=== PATIENT | female | born 1985 | race Caucasian/White ===

== ENCOUNTER 2024-04-13 22:53 | Inpatient (IN) | payer OTHER, SELFPAY ==
[2024-04-13 16:49] VITALS: BMI 37.2
[2024-04-13 17:10] VITALS: BP 113/74
[2024-04-13 17:58] LABS: % Basophils 0.3 % (0-2); % Immature Granulocytes 0.7 % (0-0.5); % Lymphocytes 6.9 % (20.5-51.1); % Monocytes 9.3 % (1.7-9.3); % Neutrophils 82.8 % (42.2-75.2); Absolute Basophils 0.1 10^3/uL (0-0.2); Absolute Immature Granulocytes 0.2 10^3/uL (0-0.05); Absolute Lymphocytes 1.8 10^3/uL (1.2-3.4); Absolute Monocytes 2.4 10^3/uL (0.1-0.6); Hematocrit 36.7 % (37.0-47.0); Hemoglobin 12.6 g/dL (12.0-16.0); Mean Corp Hgb Conc. 34.3 g/dL (33.0-37.0); Mean Corpuscular Hgb 29.1 pg (27.0-31.0); Mean Corpuscular Volume 84.8 fL (81.0-99.0); Nucleated Red Blood Cells % 0 %; Platelet Count 379 10^3/uL (130-400); Red Blood Cell Count 4.33 10^6/uL (4.20-5.40); Red Cell Dist. Width 13.6 % (11.5-14.5); White Blood Cell Count 25.4 10^3/uL (4.8-10.8)
[2024-04-13 18:01] LABS: Urine Albumin 1+ (Neg - Trace); Urine Bilirubin Negative (Negative); Urine Character Very Cloudy (Clear); Urine Color Yellow; Urine Glucose Negative (Negative); Urine Ketone Negative (Negative); Urine Leukocyte 2+ (Negative); Urine Nitrite Positive (Negative); Urine Occult Blood 1+ (Negative); Urine Urobilinogen 1+ (Neg - 1+)
[2024-04-13 18:13] LABS: Lactic Acid 1.5 mmol/L (0.7-2.0)
[2024-04-13 18:14] LABS: Urine Bacteria Few (Negative); Urine White Cell 80-90 /HPF (0-5)
[2024-04-13 18:15] LABS: ALT (SGPT) 30 U/L (0-35); AST (SGOT) 31 U/L (14-36); Albumin 4.1 g/dl (3.5-5.0); Alkaline Phosphatase 112 U/L (38-126); Blood Urea Nitrogen 7 mg/dl (7-17); Calcium 9.7 mg/dl (8.4-10.2); Carbon Dioxide 23 mmol/L (22-30); Chloride 101 mmol/L (98-107); Glucose 105 mg/dl (70-99); Potassium 3.8 mmol/L (3.5-5.1); Sodium 136 mmol/L (135-145); Total Bilirubin 0.7 mg/dl (0.2-1.3); Total Protein 7.2 g/dl (6.3-8.2); eGFR > 60.00
[2024-04-13] MEDS: NSS 1000 IV ×2 (20:32→23:02)
--- NOTE | 2024-04-13 20:59 | ED.GENMED ---
History of Present Illness
General
Chief Complaint: Fever
Source: patient and family
Exam Limitations: none
Time Seen by Provider: 04/13/24 20:11
Nursing documentation reviewed up to this point in time: agreed with
Travel History
Have you had any contact with someone who has COVID-19?: No
Do you have any symptoms of coronavirus? Fever > 100 degrees, chills, cough, shortness of breath, sore throat, loss of taste or smell, muscle aches, or headache?: Yes
Symptoms:: Fever
History of Present Illness
History of Present Illness:
Patient presents to ED secondary to 4-day history of urinary frequency, dysuria, flank pain, fever, vomiting, and decreased appetite. Tylenol and Motrin both taken at 3 PM this afternoon secondary to temp greater than 103. Denies trauma. Denies
back pain. Denies history of kidney stones. Denies recent illness. Denies recent change in medications or diet. Denies previous history of similar symptoms.
Past History
Past History
ED Past Medical History: Hypothyroidism (Hypothyroid) and Psychiatric (Anxiety/depression/PTSD)
ED Past Surgical History: Cholecystectomy, and Other
Social History
Tobacco: Smoker
Living: with family
Review of Systems
Review of Systems
Allergies reviewed?: Yes
All Other Systems: ROS reviewed and negative except as documented in HPI and ROS
Constitutional: Reports fever and chills
EENT: Reports no symptoms
Respiratory: Reports no symptoms
Cardiac: Reports no symptoms
ABD/GI: Reports nausea and vomiting
: Reports dysuria, frequency and flank pain
Musculoskeletal: Reports no symptoms; Denies back pain
Skin: Reports no symptoms
Neurological: Reports no symptoms
Phy Exam
Physical Exam
Physical Exam:
Physical Exam
General: moderate distress, not acutely ill. febrile
Head: nc/at. eomi
Neck: supple. no meningeal signs.
Heart: tachycardic, no murmur. equal radial pulses.
Lungs: no acute respiratory distress. clear bilaterally
Abdomen: normal bowel sounds. not tender.
Back: no midline tenderness.
Neuro: alert and oriented. no focal neurological deficits
Skin: no rash
Psychiatric: well kept. interactive and cooperative
Extremities: no edema. no calf tenderness.
Course
Orders/Labs/Results
Orders:
Orders
04/13/24 Breakfast
Clear Liquid
At Your Request: Full Participation
04/13/24 17:35
Complete Blood Count/With Diff Urgent
Comprehensive Metabolic Panel Urgent
HCG, Serum Qualitative Screen Urgent
Comment: ADD ON
Lactic Acid Q4H
Comment: ON ICE, CANCEL 2ND ORDER IF FIRST LACTIC ACID LEVEL <2
Urinalysis Reflex To Culture Urgent
Date Specimen was Collected: 04/13/24
Time Specimen was Collected: 17:12
Urine Microscopic Reflex Cult Urgent
Blood Culture Q30M
VIOLETTA Source: Blood/Venous
Specimen Description:
Comment: FROM 2 SEPARATE SITES
Urine Culture Urgent
VIOLETTA Source: U
Specimen Description:
Date Specimen was Collected: 04/13/24
Time Specimen was Collected: 17:12
04/13/24 17:45
Blood Culture Q30M
VIOLETTA Source: Blood/Venous
Specimen Description:
Comment: FROM 2 SEPARATE SITES
04/13/24 20:11
Add On- LAB Urgent
Tests Added?: Serum beta hCG, qualitative
04/13/24 20:28
CT Abd/pel Without Iv Or Oral Urgent
Comment:
Reason For Exam: flank pain with urinary frequency/fever
0.9% Sodium Chloride 1000 ml [Nss] 1,000 ml IV BOLUS
04/13/24 22:32
Admit/Transfer Patient As Directed
Co-Sign Provider:
Level of Care: Inpatient admission
Assign to:: Medical/Surgical
Physician / Group: Marcelo
Diagnosis: Sepsis, Pyelonephritis
Reason for Hospitalization: IVFs, IV abx
Expected length of stay greater than two midnights?: Yes
ELOS- Estimated Length of Stay in days: 3
I certify the patient meets the requirements for IP care: Yes
04/13/24 22:35
CefTRIAXone [Rocephin] 1,000 mg IV NOW STA
Sterile Water [Sterile Water For Injection] 10 ml IV NOW STA
04/13/24 22:37
Code Status As Directed
Resuscitation Status: Full Code
04/13/24 22:58
0.9% Sodium Chloride 1000 ml [Nss] 1,000 ml IV 125 mls/hr
Acetaminophen [Tylenol] 650 mg PO Q4HPRN PRN
HYDROmorphone [Dilaudid] 0.25 mg IV Q3HPRN PRN
04/13/24 22:58
Activity As Directed
Activity Level: Out of Bed-Early Mobility
With Assistance
Advance Diet as Tolerated As Directed
Goal Diet: Regular
I&O [Intake/ Output] As Directed
Frequency: q12h
Vital Signs As Directed
Frequency: Per unit guidelines
DX Deep Vein Thrombosis Video Routine
04/14/24 06:00
Basic Metabolic Panel IN AM
Complete Blood Count/No Diff IN AM
04/14/24 08:00
Bupropion(24Hr)Extended Releas [WELLBUTRIN XL (24 hour extended release)] 300 mg PO DAILY
Pantoprazole [Protonix] 40 mg PO DAILY
04/14/24 18:00
Enoxaparin Sodium [Lovenox] 40 mg SC QPM
04/14/24 22:00
CefTRIAXone [Rocephin] 1,000 mg IV Q24H
Abnormal Lab Results
04/13/24
17:35
WBC 25.4 H 10^3/uL
(4.8-10.8)
Hct 36.7 L %
(37.0-47.0)
Abs Immat Gran (auto) 0.2 H 10^3/uL
(0-0.05)
Absolute Neuts (auto) 21.0 H 10^3/uL
(1.4-6.5)
Absolute Monos (auto) 2.4 H 10^3/uL
(0.1-0.6)
Immature Gran % 0.7 H %
(0-0.5)
Neutrophils % 82.8 H %
(42.2-75.2)
Lymphocytes % 6.9 L %
(20.5-51.1)
Glucose 105 H mg/dl
(70-99)
Ur Occult Blood Reflex 1+ A
(Negative)
Urine Nitrite (Reflex) Positive A
(Negative)
Leukocyte Esterase Rfl 2+ A
(Negative)
Urine RBC 7-10 A /HPF
(0-2)
Urine WBC (Reflex) 80-90 A /HPF
(0-5)
Urine Bacteria (Reflex) Few A
(Negative)
Urine Albumin (Reflex) 1+ A
(Neg - Trace)
04/13/24 17:35
04/13/24 17:35
Vital Signs
Initial and Last Documented VS:
Initial Vital Signs
Temp Pulse Resp BP Pulse Ox
102.5 F H 119 18 113/74 94
04/13/24 17:10 04/13/24 17:10 04/13/24 17:10 04/13/24 17:10 04/13/24 17:10
Last Documented Vital Signs
Temp Pulse Resp BP Pulse Ox
99.1 F 88 18 114/78 100
04/14/24 01:00 04/13/24 23:00 04/13/24 23:00 04/13/24 23:00 04/13/24 23:00
MDM/Problems Addressed
MDM/Problems Addressed:
History and exam concerning for sepsis, likely secondary to UTI versus pyelonephritis. CT abdomen pelvis will be obtained to evaluate for potential obstructing renal stone.
Patient will be admitted for IV antibiotics.
Blood culture pending.
*Critical Care Note
Total Time (30-74mins, 75-104mins- exclusive of procedures): Not Applicable
ED Attending Note
-
Portions of this chart may have been created with voice recognition software.� Occasional wrong word or��sound alike� substitutions may have occurred due to the inherent limitations of voice recognition software.
Discharge Plan
Departure
Patient Disposition: Admit
Date of Disposition: 04/13/24
Time of Disposition: 21:04
Presentation/result/management discussed w/ accepting MD/DO: Hospitalist
Discharge Problem:
Sepsis, UTI (urinary tract infection)
Interventions
Interventions:
*Risk Screen - Suicide Last Done: 04/13/24 17:10
*General Assessment Last Done: 04/13/24 17:10
*Neglect/Abuse Screening Last Done: 04/13/24 17:10
ED- Fall Risk Assessment Last Done: 04/13/24 20:17
*ED COVID-19 Vaccine History Last Done: 04/13/24 17:10
ED- Neurological Assessment Last Done: 04/13/24 20:17
ED-Skin Assessment Last Done: 04/13/24 20:17
[2024-04-13 21:02] LABS: HCG, Serum Qualitative Screen Negative
[2024-04-13 22:18] VITALS: BP 116/72
--- NOTE | 2024-04-13 22:45 | HPS.HSE ---
Addendum entered and electronically signed by Timur Robertson DO 04/13/24 23:01:
Patient seen and examined independently. Agree with findings and plan as set forth by Stephenie Sosa PA-C.
Patient is a 38 y F with PMH significant for anxiety / depression who presents to ED complaining of fever, flank pain, urinary symptoms and N/V. Symptoms have been present for the past 3-4 days or so. Patient denies any prior history of
frequent UTIs, etc. Fever at home was as high as 103. Patient presented to the ED this evening for further evaluation and treatment.
UA in the ED is consistent with infection. CT shows no evidence of stone / obstruction.
Ass:
Left Pyelonephritis
Sepsis secondary to the above
Anxiety / Depression
Plan:
Admit for further evaluation and treatment.
IV abx with ceftriaxone pending culture data.
Supportive care including IVFs, pain control, antiemetics, etc.
Follow for clinical improvement.
IV abx until afebrile x 24 hours.
Original Note:
Family Physician
-
Family Physician: Bassam Murillo
Chief Complaint
-
Fever and Flank Pain
History of Present Illness
This is a 38 year old female with a past medical history of hypothyroidism and anxiety/depression presents for fever x 2 days. She states on Tuesday 04/10 she started with dysuria and increased urinary frequency. This then progressed to bilateral
flank pain which has been intermittent in nature. Then on Saturday she spiked a fever and stated the highest temperature she recorded was 103 F. She was taking Tylenol and Motrin which would temporarily reduce the fever. She admits to sweats and
chills. She states she started with nausea today with 4 episodes of vomiting. She states has a history of UTI once in the past which was years ago. She denies known history of kidney stones.
Medical History
Past Medical History
Past Medical History: Reports Other
Additional Past Medical History:
Anxiety/Depression/PTSD
Hypothyroidism
PCOS
Asthma
Past Surgical History: Reports Other
Additional Past Surgical History:
Cholecystectomy
Social History
Tobacco: Former Smoker (Quit two years ago)
Family History
Family History: Not pertinent
Allergies / Home Medications
Allergies reflects when Allergies were last updated in [employer].
Home Medications with original date entered in [employer]
Allergy/Medication List:
Allergies
Allergy/AdvReac Type Severity Reaction Status Date / Time
Sulfa (Sulfonamide Allergy Hives Verified 04/13/24 17:10
Antibiotics)
Home Medications
bupropion HCl 300 mg 24 hr tablet, extended release 300 mg PO DAILY 04/13/24
dextroamphetamine-amphetamine 5 mg tablet 5 mg PO DAILY PRN booster dose 04/13/24
dextroamphetamine-amphetamine ER 25 mg 24hr capsule,extend release 25 mg PO DAILY 04/13/24
docusate sodium 100 mg capsule (Colace) 100 mg PO DAILY 04/13/24
docusate sodium 100 mg capsule (Colace) 100 mg PO DAILY PRN constipation 04/13/24
multivitamin 1 tab PO DAILY 04/13/24
omeprazole 40 mg capsule,delayed release 40 mg PO DAILY 04/13/24
Review of Systems
-
A 12 point ROS was completed and negative except as noted: Yes
Constitutional: Reports Fever and Chills
Respiratory: Denies Cough or Trouble Breathing
Cardiac: Denies Chest Pain or Palpitations
Abdomen/GI: Reports Nausea and Vomiting
: Reports See HPI
Physical Exam
Vital Signs
Vital Signs
Temp Pulse Resp BP Pulse Ox
102.5 F H 90 18 116/72 98
04/13/24 17:10 04/13/24 22:18 04/13/24 22:18 04/13/24 22:18 04/13/24 22:18
Physical Exam
General: Comfortable and Conversant
HEENT: Anicteric and Moist mucous membranes
Respiratory: Clear and Non Labored Respirations
Cardiac: S1/S2 and Regular Rhythm
GI: Soft and Non Tender
Genito-urinary: Other (Bilateral CVA Tenderness)
Skin: Warm and Dry
Neuro: Awake, Alert, Oriented and Nonfocal/grossly intact
Laboratory Results
-
04/13/24 17:35
04/13/24 17:35
Laboratory Results
Lactic Acid Cancelled 04/13/24 21:15
Total Bilirubin 0.7 mg/dl (0.2-1.3) 04/13/24 17:35
AST 31 U/L (14-36) 04/13/24 17:35
ALT 30 U/L (0-35) 04/13/24 17:35
Alkaline Phosphatase 112 U/L (38-126) 04/13/24 17:35
Data Reviewed
-
CT Scan: Image Personally Visualized and interpreted
Lab Data: Labs Reviewed by me
Impression/Plan
-
Sepsis secondary to Pyelonephritis
-Continue IVFs
-Continue Rocephin
-Await urine and blood cultures
Anxiety/Depression
-Continue bupropion
DVT proph: Lovenox
Code Status: Full Code
[2024-04-13 23:00] VITALS: BP 114/78
[2024-04-13] MEDS: ROCEPHIN 1000 MG IV (23:02)
[2024-04-13] MEDS: STERILE WATER FOR INJECTION 10 ML IV (23:02)
[2024-04-14] MEDS: TYLENOL 650 MG PO ×3 (05:38→17:03)
[2024-04-14 05:53] LABS: Hematocrit 32.3 % (37.0-47.0); Hemoglobin 11.2 g/dL (12.0-16.0); Mean Corp Hgb Conc. 34.7 g/dL (33.0-37.0); Mean Corpuscular Hgb 29.7 pg (27.0-31.0); Mean Corpuscular Volume 85.7 fL (81.0-99.0); Mean Platelet Volume 9.9 fL (7.4-10.4); Platelet Count 336 10^3/uL (130-400); Red Blood Cell Count 3.77 10^6/uL (4.20-5.40); Red Cell Dist. Width 13.7 % (11.5-14.5); White Blood Cell Count 28.5 10^3/uL (4.8-10.8)
[2024-04-14 06:29] LABS: Blood Urea Nitrogen 8 mg/dl (7-17); Calcium 8.5 mg/dl (8.4-10.2); Carbon Dioxide 22 mmol/L (22-30); Chloride 102 mmol/L (98-107); Estimated Creatinine Clearance > 125 ml/min; Glucose 108 mg/dl (70-99); Potassium 3.8 mmol/L (3.5-5.1); Sodium 134 mmol/L (135-145); eGFR > 60.00
[2024-04-14] MEDS: NSS 1000 IV ×2 (08:41→16:51)
[2024-04-14] MEDS: PROTONIX 40 MG PO (08:43)
[2024-04-14] MEDS: WELLBUTRIN XL (24 hour extended release) 300 MG PO (08:43)
[2024-04-14 08:51] VITALS: BP 102/67
[2024-04-14] MEDS: NSS IV (14:24)
--- NOTE | 2024-04-14 15:00 | W.PN.HOSP.TC ---
Today's Communication/Plan
-
cw abx
Assessment / Plan
Assessment / Plan
Sepsis secondary to Pyelonephritis
-E. coli in the urine. Blood cultures pending.
-Continue IVFs
-Continue Rocephin
-Follow urine and blood cultures
-Advance diet
Anxiety/Depression
-Continue bupropion
DVT proph: Lovenox
Code Status: Full Code
Anticipated Discharge: 24 - 48 hours
Subjective/Interval History
-
Date of Service: April 14, 2024
Thayer a little nauseous but able to tolerate clear liquids. No vomiting.
Still has some dysuria is present especially at the end of urination. Flank pains have improved.
Objective Data
-
Labs:
Laboratory Results
04/14/24
05:35
WBC 28.5 H
Hgb 11.2 L
Hct 32.3 L
Plt Count 336
Sodium 134 L
Potassium 3.8
Chloride 102
Carbon Dioxide 22
BUN 8
Creatinine 0.5 L
Glucose 108 H
Calcium 8.5
Vital Signs:
Vital Signs
Temp Pulse Resp BP Pulse Ox
100.2 F 96 16 102/67 96
04/14/24 11:39 04/14/24 08:51 04/14/24 08:51 04/14/24 08:51 04/14/24 08:51
I&O
04/13/24 04/14/24 04/15/24
06:59 06:59 06:59
Intake Total 1370 / 1370
Balance 1370 / 1370
Review of Systems
-
Constitutional: Reports Fever; Denies Chills
Respiratory: Denies Trouble Breathing
Cardiac: Denies Chest Pain
Neuro: Denies Dizzy
Physical Exam
-
General: No Apparent Distress
HEENT: Moist Mucous Membranes
Respiratory: Clear to Auscultation
Cardiac: Regular Rhythm and S1/S2
GI: Soft, Nontender, Nondistended and Normal Bowel Sounds
Genito-urinary: No Costovertebral Tender
Neuro: AO x 3
Data Reviewed
-
Labs: Labs Reviewed by me
[2024-04-14] MEDS: DILAUDID 0.25 MG IV (16:52)
[2024-04-14 18:47] VITALS: BP 116/63
[2024-04-14 18:48] VITALS: BMI 36.1
[2024-04-14 23:05] VITALS: BP 108/77
[2024-04-15] MEDS: ROCEPHIN 1000 MG IV (00:10)
[2024-04-15] MEDS: STERILE WATER FOR INJECTION 10 ML IV (00:11)
[2024-04-15] MEDS: NSS 1000 IV (00:12)
--- NOTE | 2024-04-15 01:05 | PTCARENOTE ---
Pt has had several loose stools on dayshift.Tonight ,pt had brown watery stool again.Specimen stool sent to lab for C Diff.
[2024-04-15 07:00] VITALS: BP 124/72
[2024-04-15 07:08] LABS: Hematocrit 31.8 % (37.0-47.0); Hemoglobin 10.7 g/dL (12.0-16.0); Mean Corp Hgb Conc. 33.6 g/dL (33.0-37.0); Mean Corpuscular Hgb 29.2 pg (27.0-31.0); Mean Corpuscular Volume 86.6 fL (81.0-99.0); Mean Platelet Volume 10.3 fL (7.4-10.4); Platelet Count 297 10^3/uL (130-400); Red Blood Cell Count 3.67 10^6/uL (4.20-5.40); Red Cell Dist. Width 13.8 % (11.5-14.5); White Blood Cell Count 22.1 10^3/uL (4.8-10.8)
[2024-04-15] MEDS: WELLBUTRIN XL (24 hour extended release) 300 MG PO (08:40)
[2024-04-15] MEDS: PROTONIX 40 MG PO (08:40)
[2024-04-15] MEDS: DILAUDID 0.25 MG IV (10:52)
[2024-04-15] MEDS: TYLENOL 650 MG PO (10:52)
--- NOTE | 2024-04-15 11:25 | W.PN.HOSP.TC ---
Addendum entered and electronically signed by Manuel Ashton MD 04/17/24 15:55:
Pyelonephritis is acute
EColi casuing UTI
Addendum entered and electronically signed by Manuel Ashton MD 04/15/24 18:38:
DW Patient later this afternoon
Went over qtc issue on EKG .She has been taking Buproprion for 15yr . Told her the metobolism might have changed or acute infection playing a role.
she will hold med and follow up with EKG in office of pcp and go from there.
Original Note:
Today's Communication/Plan
-
Advance diet
DC planning
Assessment / Plan
Assessment / Plan
Sepsis secondary to Pyelonephritis
-E. coli in the urine. Blood cultures Negative so far
- improving leukocytosis
-Continue Rocephin
- Advance diet
- DC home if tolerating diet
Anxiety/Depression
-Continue bupropion
DVT proph: Lovenox
Code Status: Full Code
Anticipated Discharge: Today
Subjective/Interval History
-
Date of Service: April 15, 2024
Feeling improved. Still some right flank pain persist but no further dysuria.
Improving nausea no further vomiting though. Going slow on her oral diet.
No fever or chills.
Objective Data
-
Labs:
Laboratory Results
04/15/24
06:28
WBC 22.1 H
Hgb 10.7 L
Hct 31.8 L
Plt Count 297
Vital Signs:
Vital Signs
Temp Pulse Resp BP Pulse Ox
99.7 F 95 16 124/72 95
04/15/24 07:00 04/15/24 07:00 04/15/24 07:00 04/15/24 07:00 04/15/24 07:00
I&O
04/14/24 04/15/24 04/16/24
06:59 06:59 06:59
Intake Total 5120 / 5120
Balance 5120 / 5120
Review of Systems
-
Constitutional: Denies Fever
Respiratory: Denies Trouble Breathing
Cardiac: Denies Chest Pain
Neuro: Denies Dizzy
Physical Exam
-
General: No Apparent Distress
HEENT: Moist Mucous Membranes
Respiratory: Non Labored Respirations; Negative Accessory Resp Muscle Use
GI: Soft
Genito-urinary: Costovertebral Angle Tend (mild right flank)
Neuro: AO x 3
Data Reviewed
-
Labs: Labs Reviewed by me
--- NOTE | 2024-04-15 14:52 | PN.CDI ---
CDI
- -
CDI:
Physician Documentation Request
Admit Date: 04/13/24 22:53
Dear Doctor Poli,
Please review the following and provide your response in the progress notes.
Clinical Indicators:
04/13 Pt. admitted with Sepsis secondary to pyelonephritis
04/14 and 04/15 PN: 'E. coli in the urine'...
Clarify which of the following accurately represents the acuity of the Pyelonephritis . Possible options might include:
Acute Pyelonephritis
Chronic Pyelonephritis
Other (please specify)
Use of terms such as suspected, likely, concern for, or probable (associated with a specific diagnosis that is being evaluated, monitored, or treated as if it exists) are acceptable and can be coded in the inpatient setting, when documented at the
time of discharge.
Thank you,
Dee Duran RN, BSN
CDI Specialist
Available via [place] [employer]
Please use your independent medical judgment in providing your response.
[2024-04-15 15:00] VITALS: BP 118/74
--- NOTE | 2024-04-15 15:04 | PN.CDI ---
CDI
- -
CDI:
Physician Documentation Request
Admit Date: 04/13/24 22:53
Dear Doctor Poli,
Please review the following and provide your response in the progress notes.
Clinical Indicators:
04/13 Pt admitted Sepsis secondary to pyelonephritis
04/14 & 04/15 PN: 'E. coli in the urine'...
Please provide a diagnosis on the result of the urine culture:
Urinary Tract Infection
Ecoli in Urine only
Other, please specify
Use of terms such as suspected, likely, concern for, or probable (associated with a specific diagnosis that is being evaluated, monitored, or treated as if it exists) are acceptable and can be coded in the inpatient setting, when documented at the
time of discharge.
Thank you,
Dee Duran RN, BSN
CDI Specialist
Available via [place] [employer]
Please use your independent medical judgment in providing your response.
[2024-04-15 16:09] VITALS: BP 118/74
--- NOTE | 2024-04-15 16:47 | CM ---
Reviewed chart, met with patient to obtain information for assessment. Patient stated that she lives with her spouse, kids and brother in a three story home with three steps to enter. She described herself as independent with her ADLs, personal
care, bathing and dressing. 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 She drives and can get to the store and her appointments. 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
Patient denied any DME in her home.
She does not have VN services.
She has never been to a SNF.
Patient has a prescription plan and uses, [facility] for all of her medications.
Patient's PCP is, Yandel Murillo
Patient confirmed that her spouse will be able to provide transportation home.
Plan: Case management will continue to follow and assist with discharge planning. Home with spouse.
--- NOTE | 2024-04-15 18:31 | W.DS.TRANS ---
DC Summary - Kardex Clerk
-
Discharge Instructions:
Discharge Diagnosis/Procedures Acute pyelonephritis
Diet Regular
Activity As tolerated
Driving Restrictions As prior to admission
Others Tests EKG next week in your PCP office to follow on
QTc interval
Instructions:
Stand-Alone Forms:
Changes to Home Medications: Yes
Discharge Medications:
DC Medications w/original date entered in [employer]
bupropion HCl 300 mg 24 hr tablet, extended release 300 mg PO DAILY Mental Health 04/13/24
dextroamphetamine-amphetamine 5 mg tablet 5 mg PO DAILY PRN ADHD symptoms 04/13/24
dextroamphetamine-amphetamine ER 25 mg 24hr capsule,extend release 25 mg PO DAILY ADHD 04/13/24
docusate sodium 100 mg capsule (Colace) 100 mg PO DAILY Constipation 04/13/24
docusate sodium 100 mg capsule (Colace) 100 mg PO DAILY PRN constipation 04/13/24
multivitamin 1 tab PO DAILY Supplement 04/13/24
omeprazole 40 mg capsule,delayed release 40 mg PO DAILY Gastrointestinal Issue 04/13/24
acetaminophen 325 mg tablet 650 mg (2 x 325 mg) PO Q4HPRN PRN mild pain/ fever>100.5F #1 tab 04/15/24
amoxicillin 875 mg-potassium clavulanate 125 mg tablet 1 tab PO BID #20 tabs 04/15/24
Home Medication Changes
New medication - Augmentin
Hold medication - Buproprion
Pending Results: No
[2024-04-15 19:00] LABS: Magnesium 1.6 mg/dl (1.6-2.3)
== END 2024-04-15 18:54 | disposition home or self-care (01) | DRG 872 ==
LOC: 3 WEST ACU 22:53
PROVIDERS: Emergency Medicine; Physician Assistant Medical; ADMITTING PHYSICIAN Hospitalist; ATTENDING PHYSICIAN Internal Medicine; EMERGENCY PHYSICIAN Emergency Medicine; FAMILY PHYSICIAN Family Medicine
DX: A41.51 Sepsis due to Escherichia coli [E. coli] (principal); N10 Acute pyelonephritis; E03.9 Hypothyroidism, unspecified; F43.10 Post-traumatic stress disorder, unspecified; F32.A Depression, unspecified; F41.9 Anxiety disorder, unspecified; F17.200 Nicotine dependence, unspecified, uncomplicated; E28.2 Polycystic ovarian syndrome; J45.909 Unspecified asthma, uncomplicated; Z87.440 Personal history of urinary (tract) infections; Z88.2 Allergy status to sulfonamides
CPT/HCPCS: 74176; 80048; 80053; 81003; 81015; 83605; 83735; 84703; 85025; 85027; 87040; 87071; 87086; 87186; 87324; 87449; 93005; 96360; 99285